=== PATIENT | male | born 1960 | race Caucasian/White ===

== ENCOUNTER 2019-08-25 14:56 | Emergency (ER) | payer MEDICAID, OTHER ==
[~2019-08-25] VITALS: Ht 180.3 cm; Wt 81.6 kg
[2019-08-25] MEDS ORDERED: HYDROcodone-ACET 5/325MG TAB PO ONE (16:00)
[2019-08-25 16:56] VITALS: BP 105/73
== END 2019-08-25 17:04 | disposition short-term general hospital (02) ==
LOC: EDBD 14:56 → ER 15:01
DX: S02.832A Fracture of medial orbital wall, left side, initial encounter for closed fracture (principal); S02.2XXA Fracture of nasal bones, initial encounter for closed fracture; H10.32 Unspecified acute conjunctivitis, left eye; Z88.1 Allergy status to other antibiotic agents; Z87.891 Personal history of nicotine dependence; Y04.2XXA Assault by strike against or bumped into by another person, initial encounter; Y93.89 Activity, other specified; Y92.89 Other specified places as the place of occurrence of the external cause; Y99.8 Other external cause status
CPT/HCPCS: 70480

== ENCOUNTER 2019-09-27 00:27 | Inpatient (IN) | payer MEDICAID ==
[~2019-09-27] VITALS: Ht 167.6 cm; Wt 65.6 kg
[2019-09-27] VITALS (7 sets, daily range): BP systolic 84–113; BP diastolic 46–68
[2019-09-27 01:42] LABS: Basophils # (auto) 0.1 10 ^3/uL (0-0.2); Eosinophils # (auto) 0.1 10 ^3/uL (0-0.8); Hematocrit 42.9 % (41.0-53.0); Hemoglobin 13.7 g/dL (13.5-17.5); Lymphocytes # (auto) 1.3 10 ^3/uL (0.4-5.4); Lymphocytes % (auto) 20.4 % (10.0-50.0); Mean Corpuscular Hemoglobin 27.8 pg (28.0-32.0); Mean Corpuscular Hgb Conc. 31.8 g/dL (32.0-36.0); Mean Corpuscular Volume 87.4 fL (80.0-100.0); Monocytes # (auto) 0.9 10 ^3/uL (0-1.3); Monocytes % (auto) 13.3 % (0.0-12.0); Neutrophils # (auto) 4.1 10 ^3/uL (1.6-8.6); Neutrophils % (auto) 63.3 % (37.0-80.0); Nucleated Red Blood Cells % 0.1 %; Platelet Count (auto) 178 10^3/uL (140-450); Red Blood Cells 4.91 10^6/uL (4.5-5.90); White Blood Cell 6.4 10^3/uL (4.4-10.8)
[2019-09-27 02:01] LABS: BUN/Creatinine Ratio 32.6; Calcium 9.1 mg/dL (8.5-10.1); Potassium 5.1 mmol/L (3.5-5.1)
[2019-09-27 02:05] LABS: Bilirubin, Total 0.5 mg/dL (0.2-1.0); Total Protein 7.2 g/dL (6.4-8.2)
[2019-09-27] MEDS ORDERED: ENOXAPARIN SOD 80 MG/0.8ML SYRINGE SC ONE (03:30)
[2019-09-27] MEDS ORDERED: ASPirin-EC 81 mg tab PO ONE (03:30)
[2019-09-27 04:16] LABS: Urine Bacteria NONE SEEN /hpf (None Seen); Urine Blood Negative /uL (Negative); Urine Specific Gravity 1.015 (1.001-1.035); Urine WBC <1 /hpf (0 - 3)
[2019-09-27 04:23] LABS: Alcohol, Urine < 3.0 mg/dL (0-5); Amphetamine Screen, Urine NEGATIVE (NEGATIVE); Barbiturate Scree,Urine NEGATIVE (NEGATIVE); Benzodiazephine Screen, Urine POSITIVE (NEGATIVE); Cocaine Screen, Urine NEGATIVE (NEGATIVE); Opiate Scree,Urine NEGATIVE (NEGATIVE); Phencyclidine Screen, Urine NEGATIVE (NEGATIVE)
[2019-09-27 04:31] LABS: Cannabinoid Screen, Urine POSITIVE (NEGATIVE)
[2019-09-27] MEDS ORDERED: TEMAZEPAM 15 MG CAP PO ONE (05:00)
[2019-09-27] MEDS ORDERED: TEMAZEPAM 15 MG CAP PO PRN (05:30)
[2019-09-27] MEDS ORDERED: HYDROcodone-ACET 5/325MG TAB PO PRN (05:30)
[2019-09-27] MEDS ORDERED: ACETAMINOPHEN 325 MG TAB PO PRN (05:30)
[2019-09-27] MEDS ORDERED: ONDANSETRON HCL 4 MG/2 ML VIAL IV PRN (05:30)
[2019-09-27] MEDS ORDERED: MORPHINE SULF INJ 2 MG/ML SYRINGE 1ML IV PRN (05:45)
[2019-09-27] MEDS ORDERED: NITROGLYCERIN 0.4 MG SL TAB SL PRN (05:45)
--- NOTE | 2019-09-27 06:15 | NUR ---
Telemetry admit from ER SHERRY FABIAN admitted to Telemetry [facility]. Patient oriented to TIERRA GRESHAM RN primary RN, unit, room, bed, and unit policies regarding patient care and visiting hours. Patient now on continuous telemetry monitoring, tele box #50 and telemetry reading on arrival to unit is Sinus Rhythm. Patient placed on bedside oxygen, weighed by bedscale and encouraged to call if they need something. All questions and concerns addressed, patient verbalized understanding.
[2019-09-27] MEDS: FUROSEMIDE 40 MG TAB PO SCH ×2 (06:33→18:00)
[2019-09-27] MEDS: QUEtiapine FUMARATE 25 MG TAB PO SCH ×3 (06:33→21:33)
--- NOTE | 2019-09-27 07:00 | NUR ---
Endorsed care to day shift RN.
[2019-09-27] MEDS ORDERED: QUET50TA PO (07:04)
[2019-09-27] MEDS ORDERED: PANT40TA2 PO (07:04)
[2019-09-27] MEDS ORDERED: CARV3.1240 PO (07:04)
[2019-09-27] MEDS ORDERED: HYDR-4833 PO (07:04)
[2019-09-27] MEDS ORDERED: FURO1TAB31 PO (07:04)
--- NOTE | 2019-09-27 07:30 | NUR ---
Opening Shift Note Assumed care of patient, who is alert and oriented x4. No S/S of distress/SOB or pain. Respirations are even and unlabored. Bed is low, locked with 2x side rails up. Call light is within reach. Instructed on POC and to call for assist PRN, will continue to monitor for changes Q1hr and PRN.
[2019-09-27] MEDS: FAMOTIDINE 20 MG TAB PO SCH ×2 (09:38→21:33)
[2019-09-27] MEDS: CARVEDILOL 3.125 MG TAB PO SCH ×2 (09:38→22:00)
[2019-09-27] MEDS: levoFLOXacin 500MG 100 ML IV SCH (09:39)
[2019-09-27] MEDS ORDERED: LISINOPRIL 10 MG TAB PO SCH (10:00)
[2019-09-27] MEDS ORDERED: ASPirin 81 mg TAB PO SCH (10:00)
--- NOTE | 2019-09-27 15:50 | NUR ---
MRSA Swab MRSA swab sent to lab.
--- NOTE | 2019-09-27 16:35 | NUR ---
Received Social Service Consult for pt as he is homeless. The pt states he has been homeless for 3 months. Pt states he has no family support. He does have some friends who allow him to sleep on their sofa for a night or two. Pt states he does received SSI, around $600.00 a month. Gave pt resources. [facility] homeless Service ([phone]), [facility] [place] ) [facility] on the [facility] of [facility] and [facility]. Pt tells social director that he will not stay in this area. Pt states that once he receives his next check he will be moving to the [facility]. Pt signed homeless Waiver and it was placed in the chart.
--- NOTE | 2019-09-27 19:30 | NUR ---
Opening Shift Note Assumed care of patient awake and alert x4. Patient denies pain or shortness of breath at this time. Instructed on plan of care and to call for assistance as needed, patient verbalized understanding. Bed is locked in lowest position, side rails x 2 are up, and call light is within reach.
[2019-09-27] MEDS ORDERED: ATORVASTATIN 20 MG TAB PO SCH (22:00)
--- NOTE | 2019-09-27 22:00 | NUR ---
Hospitalist paged regarding low blood pressure Hospitalist paged regarding low blood pressure. Blood pressure: 87/51, heart rate: 74. Patient has a history of CHF. Patient denies dizziness at this time. Awaiting call back.
--- NOTE | 2019-09-27 22:42 | NUR ---
Spoke with hospitalist re: blood pressure Notified SUHAS Landa of patient's blood pressure 87/51 and heart rate 74. Orders received (see eMAR). Orders repeated and verified. Will carry out orders as received.
[2019-09-27 22:45] LABS: Folate (Folic Acid) 16.34 ng/mL (5.38-24)
[2019-09-27] MEDS ORDERED: ALBUMIN 5% 250 ML IV ONE (22:45)
[2019-09-28] VITALS (7 sets, daily range): BP systolic 85–108; BP diastolic 56–65
[2019-09-28] MEDS: FUROSEMIDE 40 MG TAB PO SCH (06:00)
--- NOTE | 2019-09-28 06:00 | NUR ---
IV INSERTION IV access obtained, via clean sterile technique by inserting 20 gauge catheter at right forearm after 3 attempts. IV secured properly. No trauma to site. Patient tolerated well.
--- NOTE | 2019-09-28 06:10 | NUR ---
IV REMOVAL IV catheter found laying on bed with catheter fully intact. Pressure dressing applied to site. Patient tolerated well.
[2019-09-28] MEDS: QUEtiapine FUMARATE 25 MG TAB PO SCH ×3 (06:15→21:36)
--- NOTE | 2019-09-28 07:07 | NUR ---
Closing Shift Note Endorsed patient care to Niki MALLOY.
[2019-09-28 07:09] LABS: Basophils # (auto) 0.1 10 ^3/uL (0-0.2); Basophils % (auto) 1.1 % (0.0-2.0); Eosinophils # (auto) 0.1 10 ^3/uL (0-0.8); Eosinophils % (auto) 1.9 % (0.0-7.0); Hemoglobin 13.1 g/dL (13.5-17.5); Lymphocytes % (auto) 21.1 % (10.0-50.0); Mean Corpuscular Hemoglobin 28.3 pg (28.0-32.0); Mean Corpuscular Hgb Conc. 32.7 g/dL (32.0-36.0); Mean Corpuscular Volume 86.4 fL (80.0-100.0); Monocytes # (auto) 0.8 10 ^3/uL (0-1.3); Monocytes % (auto) 15.5 % (0.0-12.0); Neutrophils % (auto) 60.4 % (37.0-80.0); Platelet Count (auto) 159 10^3/uL (140-450); Red Blood Cells 4.63 10^6/uL (4.5-5.90); Red Cell Distribution Width 16.7 % (11.8-14.3); White Blood Cell 4.9 10^3/uL (4.4-10.8)
[2019-09-28 07:18] LABS: Potassium 4.6 mmol/L (3.5-5.1)
[2019-09-28 07:27] LABS: BUN/Creatinine Ratio 23.8; Calcium 9.1 mg/dL (8.5-10.1)
[2019-09-28 09:26] LABS: Hepatitis B Surface Antibody Negative
--- NOTE | 2019-09-28 09:43 | NUR ---
Attempted PT eval but pt refused. Pt states he will participate in physical therapy after lunch.
[2019-09-28] MEDS: ASPirin 81 mg TAB PO SCH (09:50)
[2019-09-28] MEDS: levoFLOXacin 500MG 100 ML IV SCH (09:50)
[2019-09-28] MEDS: FAMOTIDINE 20 MG TAB PO SCH ×2 (09:51→21:39)
[2019-09-28] MEDS: CARVEDILOL 3.125 MG TAB PO SCH ×3 (09:51→21:37)
[2019-09-28 09:58] LABS: Hepatitis A Total Antibody Positive
[2019-09-28 11:25] LABS: Hepatitis B Core Total AB Negative
[2019-09-28 11:26] LABS: Hepatitis B Surface Antigen Negative (Negative)
[2019-09-28 11:28] LABS: Hepatitis C Antibody Reactive (Negative)
--- NOTE | 2019-09-28 13:00 | NUR ---
fashion styling intern is at bedside for EEG.
--- NOTE | 2019-09-28 16:10 | NUR ---
EEG- electroencephalogram completed on 09/28/2019.
--- NOTE | 2019-09-28 16:28 | NUR ---
D/C Planning Per SS consult for SNF Placement. Order was faxed to [facility] for reviewed. Order was faxed to [facility], [place], [facility], [facility] and [facility]. Per representatives at the facilities above they are unable to accommodate patient need at the moment. Per Kbree with [facility] patient does not meet criteria for rehab at the moment and will not be authorizing for SNF placement. Will informed doctor Saha.
--- NOTE | 2019-09-28 16:30 | NUR ---
MRSA Received a call from lab. Patient positive for MRSA in nares. Charge nurse aware.
--- NOTE | 2019-09-28 21:00 | NUR ---
Given lorrie Arroyo graham crackers.
--- NOTE | 2019-09-28 21:30 | NUR ---
Patient is asking why he is isolation, and somebody told him that he is contaminated, explained by Aaron Floyd about the MRSA, and get mad why he has no med.for that.
[2019-09-28] MEDS ORDERED: ATORVASTATIN 20 MG TAB PO SCH (22:00)
--- NOTE | 2019-09-28 23:17 | NUR ---
Sourav Archuleta for med. for MRSA in the nose, and told that patient is yelling at the staff, with order of Temazepam 30mg.p.o x one, and no order for MRSA this time.
[2019-09-28] MEDS ORDERED: TEMAZEPAM 15 MG CAP PO ONE (23:30)
--- NOTE | 2019-09-28 23:58 | NUR ---
Report given to Aaron Saini to assume the care.
--- NOTE | 2019-09-29 | NUR ---
Assumed care of patient Assumed care of patient from Tiff MALLOY. Pt currently sleeping, even respirations noted. No S/S of distress/SOB or pain. Bed in lowest locked position, call light within reach, side rails upx2. Will continue to monitor for changes Q1hr and PRN.
[2019-09-29 05:00] VITALS: BP 110/51
[2019-09-29] MEDS: QUEtiapine FUMARATE 25 MG TAB PO SCH (06:14)
[2019-09-29 07:25] LABS: BUN/Creatinine Ratio 18.3; Calcium 8.9 mg/dL (8.5-10.1); Potassium 4.6 mmol/L (3.5-5.1)
[2019-09-29] MEDS ORDERED: LISINOPRIL 10 MG TAB PO SCH (10:00)
[2019-09-29] MEDS ORDERED: MUPIROCIN 2% OINT 15gm or 22gm EACHNOSTRI SCH (10:00)
[2019-09-29] MEDS: CARVEDILOL 3.125 MG TAB PO SCH (10:00)
[2019-09-29] MEDS ORDERED: FUROSEMIDE 40 MG TAB PO SCH (10:00)
[2019-09-29] MEDS: ASPirin 81 mg TAB PO SCH (10:23)
[2019-09-29] MEDS: FAMOTIDINE 20 MG TAB PO SCH (10:23)
[2019-09-29] MEDS ORDERED: FURO1TAB31 PO (10:36)
[2019-09-29] MEDS ORDERED: ASPI81CH43 PO (10:36)
[2019-09-29] MEDS ORDERED: CARV3.1240 PO (10:36)
[2019-09-29] MEDS ORDERED: LISI10TA6 PO (10:36)
--- NOTE | 2019-09-29 14:22 | NUR ---
Discharge/Cardio-Neuro Spoke with Dr. Salcido and he said the patient is cleared for discharge from Cardio standpoint. Spoke with Dr. Jones and he said there are no more tests he wants to run for the patient and he is cleared for discharge from Neuro standpoint. Went over discharge paperwork with patient. No new prescriptions. Removed IV. Removed Telemetry and sent to ICU per hospital protocol. Removed ID band. Patient left hospital in a private vehicle with all personal belongings. 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 He was also given resources for homeless shelters.
--- NOTE | 2019-09-29 16:02 | NUR ---
assessment re:ss consult living condition Patient is a 59 year old male who is alert and oriented. Patients cognitive abilities are intact. Prior to admission patient lived from friends to friends house and functioned independently. Patient informed me he is able to care for his own ADLs. Per patient he will return home to his prior living arrangements post discharge. Patient does not consider himself homeless. Patient informed me [place]. I asked how he was going to get there. Patient informed me he has plenty of money and is going to buy a new car and drive. Patient did inform me that he has no need for DME. Patients PCP is Dr Rivera. I informed patient he has a right to speak to a social services director regarding all care. I informed patient he has a right to participate in any and all discharge planning. Patient does not have a POA and advanced directive. I have offered patient information on POA and advanced directives. I informed the patient the advantages and benefits of having an Advanced Directive. Patient verbalized understanding and agreed to discharge plan. Addendum: 09/29/19 at 1605 by Jacklyn WEINBERG Amended: Links added.
== END 2019-09-29 14:20 | disposition home or self-care (01) | DRG 54 ==
LOC: EDBD 00:27 → ER 00:29 → TELE 00:30 → TELE-WESTW 06:45
PROVIDERS: ADMIT Nurse Practitioner; ATTEND Internal Medicine
DX: F07.81 Postconcussional syndrome (principal); I21.A1 Myocardial infarction type 2; I50.43 Acute on chronic combined systolic (congestive) and diastolic (congestive) heart failure; E44.0 Moderate protein-calorie malnutrition; G30.9 Alzheimer's disease, unspecified; F02.80 Dementia in other diseases classified elsewhere, unspecified severity, without behavioral disturbance, psychotic disturbance, mood disturbance, and anxiety; R79.89 Other specified abnormal findings of blood chemistry; F41.9 Anxiety disorder, unspecified; R51 Headache; F31.9 Bipolar disorder, unspecified; Z91.19 Patient's noncompliance with other medical treatment and regimen; E78.5 Hyperlipidemia, unspecified; F12.90 Cannabis use, unspecified, uncomplicated; I70.0 Atherosclerosis of aorta; F15.10 Other stimulant abuse, uncomplicated; I11.0 Hypertensive heart disease with heart failure; I25.10 Atherosclerotic heart disease of native coronary artery without angina pectoris; I25.2 Old myocardial infarction; Z59.0 Homelessness; Z81.8 Family history of other mental and behavioral disorders; Z82.0 Family history of epilepsy and other diseases of the nervous system; Z82.49 Family history of ischemic heart disease and other diseases of the circulatory system; Z82.5 Family history of asthma and other chronic lower respiratory diseases; Z68.23 Body mass index [BMI] 23.0-23.9, adult; Z95.810 Presence of automatic (implantable) cardiac defibrillator; Z87.891 Personal history of nicotine dependence; Z90.89 Acquired absence of other organs; Z88.1 Allergy status to other antibiotic agents
CPT/HCPCS: 36415; 70450; 71045; 71046; 80048; 80053; 80061; 80307; 81001; 82607; 82746; 83735; 83880; 84443; 84484; 85025; 86704; 86706; 86708; 86803; 87081; 87340; 93005; 93306; 95819; 96365; 96372; 97163; G0378; J1956

== ENCOUNTER 2019-10-12 20:23 | Emergency (ER) | payer MEDICAID ==
[~2019-10-12] VITALS: Ht 180.3 cm; Wt 63.0 kg
[~2019-10-12 20:23] MED LIST: ASPI81CH43 PO; CARV3.1240 PO; FURO1TAB31 PO; HYDR-4833 PO; LISI10TA6 PO; PANT40TA2 PO; QUET50TA PO
[2019-10-12 20:42] VITALS: BP 117/46
== END 2019-10-12 20:55 | disposition home or self-care (01) ==
LOC: EDBD 20:23 → ER 20:23
DX: M79.10 Myalgia, unspecified site (principal); I11.0 Hypertensive heart disease with heart failure; I50.9 Heart failure, unspecified; E78.5 Hyperlipidemia, unspecified; Z90.49 Acquired absence of other specified parts of digestive tract; Z95.0 Presence of cardiac pacemaker; Z87.891 Personal history of nicotine dependence; Z98.61 Coronary angioplasty status

== ENCOUNTER 2019-10-13 03:31 | Emergency (ER) | payer MEDICAID ==
[~2019-10-13] VITALS: Ht 180.3 cm; Wt 63.0 kg
[2019-10-13 06:44] LABS: Basophils # (auto) 0.1 10 ^3/uL (0-0.2); Eosinophils # (auto) 0 10 ^3/uL (0-0.8); Eosinophils % (auto) 0.4 % (0.0-7.0); Hematocrit 46.5 % (41.0-53.0); Hemoglobin 15.1 g/dL (13.5-17.5); Lymphocytes # (auto) 1.2 10 ^3/uL (0.4-5.4); Lymphocytes % (auto) 14.3 % (10.0-50.0); Mean Corpuscular Hemoglobin 28.1 pg (28.0-32.0); Mean Corpuscular Hgb Conc. 32.5 g/dL (32.0-36.0); Mean Corpuscular Volume 86.5 fL (80.0-100.0); Neutrophils # (auto) 6.1 10 ^3/uL (1.6-8.6); Neutrophils % (auto) 72.3 % (37.0-80.0); Nucleated Red Blood Cells % 0.1 %; Platelet Count (auto) 237 10^3/uL (140-450); Red Blood Cells 5.37 10^6/uL (4.5-5.90); Red Cell Distribution Width 17.2 % (11.8-14.3); White Blood Cell 8.5 10^3/uL (4.4-10.8)
[2019-10-13 07:02] LABS: Albumin 3.8 g/dL (3.4-5.0); BUN/Creatinine Ratio 22.9; Calcium 9.9 mg/dL (8.5-10.1); Potassium 4.8 mmol/L (3.5-5.1)
[2019-10-13 07:07] LABS: Bilirubin, Total 1.2 mg/dL (0.2-1.0); Total Protein 8.1 g/dL (6.4-8.2)
[2019-10-13 09:03] VITALS: BP 111/70
[2019-10-13] MEDS ORDERED: FUROSEMIDE 20 MG TAB PO ONE (09:30)
[2019-10-13 09:53] LABS: Urine Bacteria FEW /hpf (None Seen); Urine Blood Negative /uL (Negative); Urine Hyaline Cast MOD /lpf (0 - 2); Urine Specific Gravity 1.023 (1.001-1.035); Urine WBC 2 /hpf (0 - 3)
[2019-10-13 09:56] LABS: Amphetamine Screen, Urine POSITIVE (NEGATIVE); Barbiturate Scree,Urine NEGATIVE (NEGATIVE); Benzodiazephine Screen, Urine POSITIVE (NEGATIVE); Cannabinoid Screen, Urine POSITIVE (NEGATIVE); Cocaine Screen, Urine NEGATIVE (NEGATIVE); Opiate Scree,Urine NEGATIVE (NEGATIVE); Phencyclidine Screen, Urine NEGATIVE (NEGATIVE)
== END 2019-10-13 11:14 | disposition left against medical advice (07) ==
LOC: ER 03:35
DX: I13.0 Hypertensive heart and chronic kidney disease with heart failure and stage 1 through stage 4 chronic kidney disease, or unspecified chronic kidney disease (principal); N18.9 Chronic kidney disease, unspecified; I50.9 Heart failure, unspecified; I25.10 Atherosclerotic heart disease of native coronary artery without angina pectoris; E78.5 Hyperlipidemia, unspecified; Z88.1 Allergy status to other antibiotic agents
CPT/HCPCS: 36415; 71045; 80053; 80307; 81001; 84484; 85025; 93005

== ENCOUNTER 2019-10-13 19:41 | Inpatient (IN) | payer MEDICAID ==
[~2019-10-13] VITALS: Ht 180.3 cm; Wt 66.3 kg
[~2019-10-13 19:41] MED LIST changes: +LISI-648 PO; -LISI10TA6 PO
[2019-10-13] MEDS ORDERED: ACETAMINOPHEN 325 MG TAB PO ONE (21:15)
[2019-10-13 21:37] LABS: Basophils # (auto) 0.1 10 ^3/uL (0-0.2); Basophils % (auto) 1.1 % (0.0-2.0); Eosinophils # (auto) 0 10 ^3/uL (0-0.8); Eosinophils % (auto) 0.3 % (0.0-7.0); Hematocrit 45.3 % (41.0-53.0); Hemoglobin 14.9 g/dL (13.5-17.5); Lymphocytes # (auto) 1.3 10 ^3/uL (0.4-5.4); Lymphocytes % (auto) 14.8 % (10.0-50.0); Mean Corpuscular Hemoglobin 28.5 pg (28.0-32.0); Mean Corpuscular Volume 86.4 fL (80.0-100.0); Monocytes # (auto) 1.4 10 ^3/uL (0-1.3); Monocytes % (auto) 16.4 % (0.0-12.0); Neutrophils # (auto) 5.7 10 ^3/uL (1.6-8.6); Neutrophils % (auto) 67.4 % (37.0-80.0); Platelet Count (auto) 224 10^3/uL (140-450); Red Blood Cells 5.24 10^6/uL (4.5-5.90); Red Cell Distribution Width 17.5 % (11.8-14.3); White Blood Cell 8.5 10^3/uL (4.4-10.8)
[2019-10-13 21:48] LABS: Albumin 3.6 g/dL (3.4-5.0); Anion Gap 9 (5-15); BUN/Creatinine Ratio 25.6; Blood Urea Nitrogen 40 mg/dL (7-18); Calcium 9.4 mg/dL (8.5-10.1); Carbon Dioxide 25 mmol/L (21-32); Chloride 102 mmol/L (98-107); GFR African American 59 mL/min; GFR Non-African American 49 mL/min; Glucose 90 mg/dL (74-106); INR 1.16 (0.9-1.15); Magnesium 1.8 mg/dL (1.6-2.6); Partial Thromboplastin Time 26.7 sec (23.64-32.05); Potassium 4.3 mmol/L (3.5-5.1); Sodium 136 mmol/L (136-145)
[2019-10-13 21:51] LABS: Alanine Aminotransferase 39 U/L (16-61); Alkaline Phosphatase 124 U/L (45-117); Aspartate Aminotransferase 37 U/L (15-37)
[2019-10-13] MEDS ORDERED: MORPHINE SULFATE 4 MG/ML SYR/VIAL IV ONE (22:45)
[2019-10-13] MEDS ORDERED: ONDANSETRON HCL 4 MG/2 ML VIAL IV ONE (22:45)
[2019-10-13] MEDS ORDERED: ACETAMINOPHEN 325 MG TAB PO PRN (23:30)
[2019-10-13] MEDS ORDERED: NITROGLYCERIN 0.4 MG SL TAB SL PRN ×2 (23:30)
[2019-10-13] MEDS ORDERED: MORPHINE SULF INJ 2 MG/ML SYRINGE 1ML IV PRN (23:30)
[2019-10-13] MEDS ORDERED: MORPHINE SULFATE 4 MG/ML SYR/VIAL IV PRN (23:30)
[2019-10-14] VITALS (7 sets, daily range): BP systolic 72–103; BP diastolic 42–69
--- NOTE | 2019-10-14 00:30 | NUR ---
Telemetry admit from ER CARENSHERRY admitted to Telemetry. Patient oriented to ELPIDIO CASH, primary RN, unit, room, bed, and unit policies regarding patient care and visiting hours. Patient now on continuous telemetry monitoring, tele box #61 and telemetry reading on arrival to unit is SR. Patient weighed by bedscale and encouraged to call if they need something. Call light expalined and placed within reach. All questions and concerns addressed, patient verbalized understanding.
[2019-10-14] MEDS ORDERED: FUROSEMIDE 20 MG/2 ML VIAL ONE (00:46)
[2019-10-14] MEDS: FUROSEMIDE 40 MG/4 ML VIAL IV SCH ×3 (00:48→21:57)
[2019-10-14 06:12] LABS: Basophils # (auto) 0.1 10 ^3/uL (0-0.2); Basophils % (auto) 1.3 % (0.0-2.0); Eosinophils # (auto) 0.1 10 ^3/uL (0-0.8); Eosinophils % (auto) 1.8 % (0.0-7.0); Hematocrit 41.4 % (41.0-53.0); Hemoglobin 13.6 g/dL (13.5-17.5); Lymphocytes # (auto) 1.5 10 ^3/uL (0.4-5.4); Lymphocytes % (auto) 29.4 % (10.0-50.0); Mean Corpuscular Hemoglobin 28.2 pg (28.0-32.0); Mean Corpuscular Hgb Conc. 32.7 g/dL (32.0-36.0); Mean Corpuscular Volume 86.1 fL (80.0-100.0); Monocytes # (auto) 0.8 10 ^3/uL (0-1.3); Monocytes % (auto) 15.5 % (0.0-12.0); Neutrophils # (auto) 2.7 10 ^3/uL (1.6-8.6); Nucleated Red Blood Cells % 0.1 %; Platelet Count (auto) 220 10^3/uL (140-450); Red Blood Cells 4.81 10^6/uL (4.5-5.90); Red Cell Distribution Width 17.5 % (11.8-14.3); White Blood Cell 5.2 10^3/uL (4.4-10.8)
[2019-10-14 06:27] LABS: Calcium 9.1 mg/dL (8.5-10.1); Magnesium 1.9 mg/dL (1.6-2.6); Potassium 3.9 mmol/L (3.5-5.1)
[2019-10-14 06:31] LABS: BUN/Creatinine Ratio 26.9
--- NOTE | 2019-10-14 07:25 | NUR ---
Opening Note Received report from security shift manager RN. Patient is awake, alert and oriented x4. No signs or symptoms of distress noted at this time. Patient is on room air, respirations even and unlabored. Patient states headache 10/ and is requesting NORCO, patient does not have any PRN NORCO available at this time. Reviewed plan of care with patient, patient verbalized understanding. Bed in low and locked position, call light within reach. Will continue to monitor Q1 hour and PRN.
--- NOTE | 2019-10-14 09:57 | NUR ---
Microbiology Call from [facility], patient is positive for MRSA nares. Charge nurse aware, will notify MD. Will continue to monitor Q1 hour and PRN.
[2019-10-14] MEDS: LISINOPRIL 10 MG TAB PO SCH (10:00)
[2019-10-14] MEDS: CARVEDILOL 3.125 MG TAB PO SCH ×2 (10:00→21:57)
[2019-10-14] MEDS: ENOXAPARIN SOD 60 MG/0.6 ML SYRINGE SC SCH ×2 (10:00→21:47)
--- NOTE | 2019-10-14 10:03 | NUR ---
blood pressure reassessment patients blood pressure is now 91/58, heart rate 52. No signs or symptoms of distress noted at this time. Will continue to monitor Q1 hour and PRN.
[2019-10-14] MEDS: ASPirin 81 mg TAB PO SCH (10:04)
[2019-10-14] MEDS: DOCUSATE SOD 100 MG CAP PO SCH (10:04)
[2019-10-14] MEDS: CLOPIDOGREL BISULFATE 75 MG TAB PO SCH (10:04)
--- NOTE | 2019-10-14 10:04 | NUR ---
Patient refused 1000 medication Patient refused Colace, states he has been having diarrhea. Patient refused Lovenox, states he does not need it. Educated patient, patient continues to refuse. Will continue to monitor Q1 hour and PRN.
[2019-10-14] MEDS ORDERED: SENNA 8.6 MG TAB PO PRN (15:00)
[2019-10-14] MEDS ORDERED: LACTULOSE 20Gm/30ML SOLN PO PRN (15:00)
--- NOTE | 2019-10-14 15:11 | NUR ---
COVERING FOR DAY SHIFT RN SUMMER. PATIENT IS VERY UPSET THAT DOCTOR DID NOT ORDER NORCO FOR HIS HEADACHE. PATIENT IS YELLING AND CURSING AT STAFF. SECURITY AT BEDSIDE. INFORMED PATIENT WE ARE UNABLE TO GIVE NORCO BECAUSE IT IS NOT ORDERED. MD DRAKE ROUNDED ON PATIENT 10 MINUTES EARLIER AND IS AWARE OF PATIENT'S HEADACHE AND DID NOT ORDER PAIN MEDICATIONS
--- NOTE | 2019-10-14 15:29 | NUR ---
Lactulose given Patient now states he is constipated. Patient is agitated stating we are not doing anything for his constipation. Per patient this morning he was having diarrhea. Will mediate per orders. Will continue to monitor Q1 hour and PRN.
--- NOTE | 2019-10-14 19:21 | NUR ---
Closing Note Report given to night manager RN. No signs or symptoms of distress noted at this time.
--- NOTE | 2019-10-14 20:10 | NUR ---
Opening Shift Note Assumed care of patient, awake and alert. No S/S of distress/SOB. Patient is on room air. Respirations even and unlabored. Instructed on POC and to call for assist PRN, will continue to monitor for changes Q1hr and PRN.
--- NOTE | 2019-10-14 21:23 | NUR ---
Patient requests [place] for [address] Chapin contacted regarding patient requesting to be put on pain medication he was taking at home for 04/20 headache, [place] 10 two times a day per patient statement. New order received: [place] 10/325 mg Q12 hours PRN for severe pain 7-10.
--- NOTE | 2019-10-14 21:47 | NUR ---
Patient refusing Lovenox Patient educated that Lovenox is a medication that prevents blood clots. Patient states he does not have a problem with that and continues to refuse. Patient states he does not like needles.
[2019-10-14] MEDS: ATORVASTATIN 20 MG TAB PO SCH (21:56)
[2019-10-14] MEDS: HYDROcodone-ACET 10/325MG TAB PO PRN (21:57)
[2019-10-15] VITALS (7 sets, daily range): BP systolic 90–108; BP diastolic 50–73
[2019-10-15 06:35] LABS: Basophils # (auto) 0.1 10 ^3/uL (0-0.2); Eosinophils # (auto) 0.1 10 ^3/uL (0-0.8); Eosinophils % (auto) 2.2 % (0.0-7.0); Hematocrit 43.8 % (41.0-53.0); Hemoglobin 14.3 g/dL (13.5-17.5); Lymphocytes # (auto) 1.6 10 ^3/uL (0.4-5.4); Lymphocytes % (auto) 25.1 % (10.0-50.0); Mean Corpuscular Hemoglobin 28.2 pg (28.0-32.0); Mean Corpuscular Hgb Conc. 32.6 g/dL (32.0-36.0); Mean Corpuscular Volume 86.5 fL (80.0-100.0); Monocytes # (auto) 1.1 10 ^3/uL (0-1.3); Monocytes % (auto) 17.4 % (0.0-12.0); Neutrophils # (auto) 3.4 10 ^3/uL (1.6-8.6); Neutrophils % (auto) 54.3 % (37.0-80.0); Platelet Count (auto) 211 10^3/uL (140-450); Red Blood Cells 5.06 10^6/uL (4.5-5.90); Red Cell Distribution Width 17.3 % (11.8-14.3); White Blood Cell 6.3 10^3/uL (4.4-10.8)
[2019-10-15 06:56] LABS: Potassium 4.2 mmol/L (3.5-5.1)
--- NOTE | 2019-10-15 07:00 | NUR ---
CLOSING NOTE No S/S of distress/SOB. Patient is on room air. Respirations even and unlabored.
[2019-10-15 07:29] LABS: BUN/Creatinine Ratio 27.6; Calcium 9.2 mg/dL (8.5-10.1); Magnesium 1.8 mg/dL (1.6-2.6)
--- NOTE | 2019-10-15 07:30 | NUR ---
Opening Shift Note Assumed care of patient, awake and alert. No S/S of distress/SOB or pain. Instructed on POC and to call for assist PRN, will continue to monitor for changes Q1hr and PRN.
[2019-10-15] MEDS: LISINOPRIL 10 MG TAB PO SCH (10:00)
[2019-10-15] MEDS: ENOXAPARIN SOD 60 MG/0.6 ML SYRINGE SC SCH (10:00)
[2019-10-15] MEDS: ASPirin 81 mg TAB PO SCH (10:50)
[2019-10-15] MEDS: FUROSEMIDE 40 MG/4 ML VIAL IV SCH (10:50)
[2019-10-15] MEDS: DOCUSATE SOD 100 MG CAP PO SCH (10:50)
[2019-10-15] MEDS: CLOPIDOGREL BISULFATE 75 MG TAB PO SCH (10:51)
[2019-10-15] MEDS: CARVEDILOL 3.125 MG TAB PO SCH ×2 (10:51→21:42)
[2019-10-15] MEDS: FUROSEMIDE 100 MG/10ML VIAL IV SCH (18:00)
--- NOTE | 2019-10-15 20:00 | NUR ---
Opening Shift Note Assumed care of patient, awake and alert. No S/S of distress/SOB or pain. Patient is on room air. Respirations even and unlabored. Instructed on POC and to call for assist PRN, will continue to monitor for changes Q1hr and PRN.
[2019-10-15] MEDS: HYDROcodone-ACET 10/325MG TAB PO PRN (20:22)
[2019-10-15] MEDS: ATORVASTATIN 20 MG TAB PO SCH (21:42)
[2019-10-16 05:00] VITALS: BP 105/64
[2019-10-16] MEDS: FUROSEMIDE 100 MG/10ML VIAL IV SCH (06:01)
--- NOTE | 2019-10-16 06:59 | NUR ---
CLOSING NOTE No S/S of distress/SOB or pain. Patient is on room air. Respirations even and unlabored.
[2019-10-16 08:00] VITALS: BP 98/74
--- NOTE | 2019-10-16 08:30 | NUR ---
Opening Note Assumed care of patient. Easily rousable to his name. He is A & O x4, no s/s of distress. Spoke to patient regarding his plan of care. He agreed. Bed is in lowest, locked position, call light within reach. Will continue to monitor Q1h and PRN.
[2019-10-16] MEDS ORDERED: ENOXAPARIN SOD 40 MG/0.4 ML SYRINGE SC SCH (10:00)
[2019-10-16] MEDS: DOCUSATE SOD 100 MG CAP PO SCH (10:00)
[2019-10-16] MEDS: HYDROcodone-ACET 10/325MG TAB PO PRN (10:04)
[2019-10-16] MEDS: ASPirin 81 mg TAB PO SCH (10:07)
[2019-10-16] MEDS: CLOPIDOGREL BISULFATE 75 MG TAB PO SCH (10:08)
[2019-10-16] MEDS: LISINOPRIL 10 MG TAB PO SCH (10:08)
[2019-10-16] MEDS: CARVEDILOL 3.125 MG TAB PO SCH (10:09)
--- NOTE | 2019-10-16 10:10 | NUR ---
Patient agitated and yelling at staff. Security called to bedside. Patient is cussing at staff and stating "everyone is worthless, my fucking nurse won't bring my Jackson, I have been asking for 2 hours." This RN spoke to patient with security and devulcanizer charger at bedside. Explained to the patient that I spoke to him at 0930 and told him I would bring his pain medication at 1000 with his medications, he agreed. He yelled "that wasn't a half an hour ago!" This RN asked if he would like the rest of his medications at this time, medicated patient with Jackson for head pain that is chronic. He agreed. Patient continued to yell at security for being present. Patient also refusing to wear tele monitor, discussed with patient the need to wear his heart monitor due to his diagnosis and symptoms he came in for. He refused to wear it. Will send it back to tele room and inform physician. Will continue to monitor patient.
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
--- NOTE | 2019-10-16 11:11 | NUR ---
Received Social Service Consult for multiple admissions, hx of substance abuse and poor support. Pt yelling at his nurse and the security ambassador. Pt very agitated and angry. Did not assess.
[2019-10-16 12:00] VITALS: BP 90/58
--- NOTE | 2019-10-16 14:30 | NUR ---
Spoke to Krystal, enterprise services manager. Patient was given resources last time he was here but did not want placement. Will have patient attempt to call [facility] and [facility] Homeless [facility].
--- NOTE | 2019-10-16 16:02 | NUR ---
Pt refused to speak with [employer]. He stated that he did not want speak with social sciences professor.
--- NOTE | 2019-10-16 16:15 | NUR ---
Pt now wishes to speak with social work program coordinator. Pt would like to be transported to [place] where his sister is. Pt states he does not know his way around [place]. Pt getting mad. Informed pt that if his home was in [place] and he could stay with his sister we would provide transportation. Pt in agreement. The pt's nurse to discharge pt to hospital lobby to wait for transportation.
[2019-10-16 17:00] VITALS: BP 90/54
--- NOTE | 2019-10-16 18:00 | NUR ---
Discharge instructions given as ordered. Encourage to follow up with PMD as instructed. All questions and concerns addressed. Patient verbalized understanding. Medication reconciliation form completed and copy given to patient. IV removed with catheter intact, pressure dressing applied. Telemetry unit returned to ICU. Patient ambulated to [facility] with bacteriologist medical to wait for taxi with all personal belongings, accompanied by staff. No distress noted at time of departure.
--- NOTE | 2019-10-16 18:45 | NUR ---
Patient Discharged Addendum: 10/16/19 at 1845 by Kailey Hernadez RN Amended: Links added.
== END 2019-10-16 18:00 | disposition home or self-care (01) | DRG 194 ==
LOC: EDBD 19:41 → ER 19:44 → TELE-WESTW 19:45 → TELE 19:45 → UNDOADMIN 19:45
PROVIDERS: ADMIT Hospitalist; ATTEND Internal Medicine
DX: I11.0 Hypertensive heart disease with heart failure (principal); N17.0 Acute kidney failure with tubular necrosis; I27.21 Secondary pulmonary arterial hypertension; I42.0 Dilated cardiomyopathy; I50.23 Acute on chronic systolic (congestive) heart failure; I25.10 Atherosclerotic heart disease of native coronary artery without angina pectoris; E78.5 Hyperlipidemia, unspecified; F15.90 Other stimulant use, unspecified, uncomplicated; K59.00 Constipation, unspecified; Z95.810 Presence of automatic (implantable) cardiac defibrillator; Z91.19 Patient's noncompliance with other medical treatment and regimen; Z90.49 Acquired absence of other specified parts of digestive tract; Z95.5 Presence of coronary angioplasty implant and graft; Z87.891 Personal history of nicotine dependence; Z79.82 Long term (current) use of aspirin
CPT/HCPCS: 36415; 80048; 80053; 80061; 83735; 83880; 84443; 84484; 85025; 85610; 85730; 87081; 93005; 96374; 96375; G0378; J2405

== ENCOUNTER 2021-03-19 03:18 | Emergency (ER) | payer MEDICAID ==
[~2021-03-19] VITALS: Ht 180.3 cm; Wt 66.7 kg
[~2021-03-19 03:18] MED LIST changes: -LISI-648 PO; +LISI-716 PO
[2021-03-19 04:13] LABS: Basophils # (auto) 0.1 10 ^3/uL (0-0.2); Basophils % (auto) 0.7 % (0.0-2.0); Eosinophils # (auto) 0.1 10 ^3/uL (0-0.8); Hematocrit 39.1 % (41.0-53.0); Hemoglobin 12.9 g/dL (13.5-17.5); Lymphocytes # (auto) 1.4 10 ^3/uL (0.4-5.4); Lymphocytes % (auto) 16.9 % (10.0-50.0); Mean Corpuscular Hemoglobin 29.9 pg (28.0-32.0); Mean Corpuscular Hgb Conc. 32.9 g/dL (32.0-36.0); Mean Corpuscular Volume 90.8 fL (80.0-100.0); Neutrophils # (auto) 5.9 10 ^3/uL (1.6-8.6); Neutrophils % (auto) 69.4 % (37.0-80.0); White Blood Cell 8.4 10^3/uL (4.4-10.8)
[2021-03-19 04:25] LABS: Albumin 3.9 g/dL (3.4-5.0); Calcium 9.7 mg/dL (8.5-10.1); Potassium 4.4 mmol/L (3.5-5.1)
[2021-03-19 04:29] LABS: BUN/Creatinine Ratio 15.1; Bilirubin, Total 0.4 mg/dL (0.2-1.0); Total Protein 7.8 g/dL (6.4-8.2)
[2021-03-19 05:00] VITALS: BP 115/75
== END 2021-03-19 06:23 | disposition home or self-care (01) ==
LOC: ER 03:18
DX: F15.10 Other stimulant abuse, uncomplicated (principal); F12.10 Cannabis abuse, uncomplicated; I11.0 Hypertensive heart disease with heart failure; I50.9 Heart failure, unspecified; I25.10 Atherosclerotic heart disease of native coronary artery without angina pectoris; I25.2 Old myocardial infarction; E78.5 Hyperlipidemia, unspecified; Z90.49 Acquired absence of other specified parts of digestive tract; Z95.0 Presence of cardiac pacemaker; Z87.891 Personal history of nicotine dependence; Z79.82 Long term (current) use of aspirin; Z79.899 Other long term (current) drug therapy; Z88.1 Allergy status to other antibiotic agents
CPT/HCPCS: 36415; 71045; 80053; 85025